=== PATIENT | female | born 2005 | race Caucasian/White ===

== ENCOUNTER 2023-03-10 16:26 | Emergency (ER) | payer OTHER, SELFPAY ==
[2023-03-10 16:39] VITALS: BP 152/80; PULSE 127; RESP 16; TEMP 36.8; O2SAT 100
--- NOTE | 2023-03-10 17:22 | ED.GENADULT ---
HPI - General Adult General Chief complaint: Dental/Oral Stated complaint: GUMS SWELLING Time Seen by Provider: 03/10/23 17:10 Source: patient, RN notes reviewed and old records reviewed Mode of arrival: ambulatory Limitations: no limitations History of Present Illness HPI narrative: 17-year-old female who presents to [facility] with complaints of sore throat and upper right most posterior inner gum swelling since yesterday. Patient reports that she doesn't have any dental caries and has been told that she does not have any wisdom teeth by her dentist. Patient has some noted swelling or right upper posterior inner gum denies any pain to the area, no broken teeth or any obvious caries. Patient states some sore throat with some swelling and redness of tonsils, denies any known fevers,chills or sweats or any body aches. MD complaint: gum soreness and sore throat Onset (ago): day(s) (1) Treatments prior to arrival: none Related Data Home Medications Medication Instructions Recorded Confirmed norgestimate 0.25 mg-ethinyl 1 tablet PO DAILY 03/10/23 03/10/23 estradiol 35 mcg tablet (Estarylla) Allergies Allergy/AdvReac Type Severity Reaction Status Date / Time amoxicillin [From Amoxil] Allergy Rash Verified 03/10/23 16:38 Penicillins Allergy Rash Verified 03/10/23 16:38 Review of Systems Review of Systems: CONSTITUTIONAL: Denies malaise, chills, sweats, or fever. EYES: Denies visual changes, redness, or discharge. ENT: Reports rhinorrhea, congestion,no sinus pain,no otalgia, mild sore throat, swelling of gums right upper posterior inner gum no pain. CARDIOVASCULAR: Denies chest pain, palpitations, or edema. RESPIRATORY: Reports no cough.? Denies dyspnea. GASTROINTESTINAL: Denies abdominal pain, nausea, vomiting, diarrhea SKIN: Denies rash or itching. MUSCULOSKELETAL: Denies myalgia. NEUROLOGIC: Denies headache. All systems reviewed & are unremarkable except as noted in HPI and below [facility] Social History Social History (Updated 03/13/23 @ 08:01 by Kerline Lagunas NP) Smoking status: Never smoker Alcohol intake: never Substance use: never Gender identity (if verbalized by the patient): Female Comments At time of signature, agree with nursing past medical, surgical, social and family history. There is no relevant family history pertinent to the presenting complaint Exam Narrative: GENERAL: Well-appearing, well-nourished, and in no acute distress. HEAD: Normocephalic EYES: PERRLA, conjunctivae clear ENT: Nares clear, turbinates edematous and erythematous, clear discharge. Mucous membranes moist. TM pearly [place] with dull light reflex bilaterally; no tragal tenderness. Oropharynx erythematous without lesions. Tonsils enlarged and without exudate, no drooling, no hoarseness, no trismus, uvula midline, some post nasal drainage. NECK: Supple. No lymphadenopathy CHEST: Clear to auscultation, breath sounds equal. No wheezing, rhonchi, rales, or stridor. No respiratory distress, speaks in full sentences.SAO2 100% on room air HEART: Regular rate and rhythm. No murmur heard. SKIN: Warm, dry, no rash. NEURO: Alert and oriented x3. PSYCH: Normal mood and affect Course Course Emergency Course: Patient is aware of diagnosis, understands and agrees to treatment plan.? Anticipatory guidance given.? Patient agrees to follow-up as directed and is aware of reasons to seek care at the emergency department. Portions of this record may have been created with voice recognition software Level of Care: Express Care Visit Vital Signs Vital signs: Vital Signs Temperature 36.8 C 03/10/23 16:39 Pulse Rate 127 H 03/10/23 16:39 Respiratory Rate 16 03/10/23 16:39 Blood Pressure 152/80 H 03/10/23 16:39 Pulse Oximetry 100 03/10/23 16:39 Temperature 36.8 C 03/10/23 16:39 Pulse Rate 127 H 03/10/23 16:39 Respiratory Rate 16 03/10/23 16:39 Blood Pressure 152/8
== END 2023-03-10 17:57 | disposition home or self-care (01) ==
PROVIDERS: Emergency Provider Registered Nurse
DX: R22.0 Localized swelling, mass and lump, head (principal); J02.9 Acute pharyngitis, unspecified
CPT/HCPCS: 87081; 87880; 99213; G0463

== ENCOUNTER 2024-02-12 13:39 | Outpatient (CLI) | payer BC, SELFPAY ==
[2024-02-12 14:21] LABS: Beta HCG Quantitative < 2.39 mIU/ML
== END 2024-02-12 13:40 | disposition home or self-care (01) ==
LOC: ANHLAB 13:40
PROVIDERS: Visit Provider Obstetrics & Gynecology
DX: Z30.9 Encounter for contraceptive management, unspecified (principal)
CPT/HCPCS: 36415; 84702